=== PATIENT | female | born 1965 | race Caucasian/White ===

== ENCOUNTER 2017-03-31 08:50 | Emergency (ER) | payer MEDICAID, OTHER ==
[2017-03-31] MEDS ORDERED: Naproxen 550 mg Tab PO STA (09:27)
[2017-03-31] MEDS ORDERED: Dexamethasone 4 mg/1 ml IM STA (09:28)
[2017-03-31] MEDS ORDERED: Naproxen 550 mg Tab PO ONE (09:33)
[2017-03-31] MEDS ORDERED: Dexamethasone 4 mg/1 ml ONE ×2 (09:33→09:38)
--- NOTE | 2017-03-31 09:43 | C.PDOC ---
Time Seen by Provider: 03/31/17 09:19 Chief Complaint (Nursing): ENT Problem History Per: Patient Onset/Duration Of Symptoms: Days (2) Current Symptoms Are (Timing): Still Present Associated Symptoms: Fever (subjective), Sore Throat Severity: Moderate Additional History Per: Prior Records Past Medical History Reviewed: Historical Data, Nursing Documentation, Vital Signs Vital Signs: Last Vital Signs Temp 98.2 F 03/31/17 09:11 Pulse 73 03/31/17 09:11 Resp 20 03/31/17 09:11 BP 119/76 03/31/17 09:11 Pulse Ox 100 03/31/17 09:44 - Medical History PMH: HTN Other Surgeries: Tubal ligation? Family History: States: Unknown Family Hx - Social History Hx Alcohol Use: No Hx Substance Use: No - Immunization History Hx Tetanus Toxoid Vaccination: No Hx Influenza Vaccination: No Hx Pneumococcal Vaccination: No Review Of Systems Except As Marked, All Systems Reviewed And Found Negative. Constitutional: Positive for: Malaise ENT: Positive for: Throat Pain, Throat Swelling. Negative for: Nose Congestion Cardiovascular: Negative for: Chest Pain Respiratory: Negative for: Shortness of Breath Gastrointestinal: Negative for: Vomiting, Abdominal Pain Musculoskeletal: Negative for: Neck Pain Skin: Negative for: Rash Neurological: Positive for: Headache. Negative for: Weakness, Numbness, Seizures, Altered Mental Status Physical Exam - Physical Exam Appears: Non-toxic, No Acute Distress Skin: Normal Color, Warm, Dry, No Rash Head: Atraumatic, Normacephalic Eye(s): bilateral: Normal Inspection, PERRL, EOMI Throat: Erythema, No Drooling, No Mass, Other (symmetrically enlarged tonsils) Neck: Normal ROM, Supple Cardiovascular: Rhythm Regular Respiratory: Normal Breath Sounds, No Accessory Muscle Use Gastrointestinal/Abdominal: Soft, No Tenderness Back: No CVA Tenderness Extremity: Normal ROM Neurological/Psych: Oriented x3, Normal Speech, Normal Motor, Normal Sensation ED Course And Treatment O2 Sat by Pulse Oximetry: 100 Pulse Ox Interpretation: Normal Reassessment Condition: Improved Disposition Counseled Patient/Family Regarding: Diagnosis, Need For Followup, Rx Given - Disposition Referrals: Shanell John MD [Medical Doctor] - Disposition: HOME/ ROUTINE Disposition Time: 10:16 Condition: IMPROVED Additional Instructions: Follow up with your doctor within 2 days. Return to the ER if you develop high fever, vomiting, trouble breathing or swallowing, worsening of symptoms or if you have any other concerns. Prescriptions: Azithromycin [Zithromax] 1 dose PO DAILY #1 pkt Naproxen [Naprosyn] 1 tab PO BID PRN #20 tab PRN Reason: Pain Instructions: Pharyngitis (ED) Print Language: GUAMANIAN - Clinical Impression Clinical Impression: Acute pharyngitis
[2017-03-31 10:23] VITALS: BP 101/67; PULSE 68; RESP 18; TEMP 97.9; O2SAT 99
== END 2017-03-31 10:25 | disposition home or self-care (01) ==
LOC: C.ER 08:50
DX: J02.9 Acute pharyngitis, unspecified (principal)
CPT/HCPCS: 96372; 99283; J1100

== ENCOUNTER 2017-10-06 18:07 | Emergency (ER) | payer MEDICAID ==
[2017-10-06 18:16] VITALS: O2SAT 100
[2017-10-06 19:09] LABS: BASO % 0.9 % (0.0-2.0); EOS # 0.1 K/uL (0.0-0.7); EOS % 1.6 % (0.0-4.0); HEMATOCRIT 33.5 % (34.0-47.0); LYMPH # 1.4 K/uL (1.0-4.3); LYMPH % 32.6 % (20.0-40.0); MEAN CELL VOLUME 85.4 fL (81.0-99.0); MEAN CORPUSCULAR HEMOGLOBIN 28.3 pg (27.0-31.0); MEAN CORPUSCULAR HGB CONC 33.1 g/dL (33.0-37.0); MONO # 0.5 K/uL (0.0-0.8); RED CELL DISTRIBUTION WIDTH 14.1 % (11.5-14.5); WHITE BLOOD COUNT 4.3 K/uL (4.8-10.8)
--- NOTE | 2017-10-06 19:16 | C.PDOC ---
History Of Present Illness 52-year-old female presents to the ED complaining of left facial numbness and slight droop since 8am this morning. No headache. Reports having chest pain yesterday but not today. PMD: Shanell John Time Seen by Provider: 10/06/17 19:00 Chief Complaint (Nursing): Weakness/Neurological Deficit History Per: Patient History/Exam Limitations: no limitations Onset/Duration Of Symptoms: Hrs (x11) Current Symptoms Are (Timing): Still Present Past Medical History Reviewed: Historical Data, Nursing Documentation, Vital Signs Vital Signs: Last Vital Signs Temp 98.3 F 10/06/17 19:57 Pulse 76 10/06/17 19:57 Resp 11 L 10/06/17 19:57 BP 123/67 10/06/17 19:57 Pulse Ox 100 10/06/17 20:06 - Medical History PMH: HTN Other Surgeries: Hysterectomy Family History: States: Unknown Family Hx - Social History Hx Alcohol Use: No Hx Substance Use: No - Immunization History Hx Tetanus Toxoid Vaccination: No Hx Influenza Vaccination: No Hx Pneumococcal Vaccination: No Review Of Systems Except As Marked, All Systems Reviewed And Found Negative. Cardiovascular: Negative for: Chest Pain Neurological: Positive for: Numbness (to left face, w/ slight droop). Negative for: Headache Physical Exam - Physical Exam Appears: Non-toxic, No Acute Distress Skin: Normal Color, Warm, Dry Head: Atraumatic, Normacephalic Eye(s): bilateral: Normal Inspection, PERRL, EOMI, Other (no retinal bleed) Neck: Normal, Supple Chest: Symmetrical Cardiovascular: Rhythm Regular, No Murmur Respiratory: Normal Breath Sounds, No Accessory Muscle Use Gastrointestinal/Abdominal: Normal Exam, Soft, No Tenderness Extremity: Bilateral: Atraumatic, Normal Color And Temperature, Normal ROM Neurological/Psych: Oriented x3, Normal Speech, No Other (focal deficits) Gait: Steady Other Neurological Findings: Facial Palsy (minimal left facial droop) ED Course And Treatment - Laboratory Results Result Diagrams: 10/06/17 19:03 10/06/17 19:03 O2 Sat by Pulse Oximetry: 100 (RA) Pulse Ox Interpretation: Normal Medical Decision Making Medical Decision Making: Plan: * CMP * Troponin I * CBC * PTT * Prothrombin time * EKG * CT Head w/o contrast Disposition Counseled Patient/Family Regarding: Diagnosis - Disposition Referrals: [facility] [Outside] Disposition Time: 20:23 Condition: GOOD Prescriptions: Prednisone 10 mg PO QID 5 Days #20 tab.ds.pk Instructions: Garcia Palsy (ED) Forms: [facility] (Paraguayan), Gen Discharge Inst Azeri Print Language: ROMANIAN - POA Present On Arrival: None - Clinical Impression Clinical Impression: Garcia's palsy - Scribe Statement The provider has reviewed the documentation as recorded by the Scribgeoffrey Alvarado All medical record entries made by the Rubénibgeoffrey were at my direction and personally dictated by me. I have reviewed the chart and agree that the record accurately reflects my personal performance of the history, physical exam, medical decision making, and the department course for this patient. I have also personally directed, reviewed, and agree with the discharge instructions and disposition.
[2017-10-06 19:18] LABS: ALKALINE PHOSPHATASE 74 U/L (38-126); ALT/SGPT 30 U/L (9-52); AST/SGOT 16 U/L (14-36); BILIRUBIN,TOTAL 0.3 mg/dL (0.2-1.3); BLOOD UREA NITROGEN 11 mg/dL (7-17); CALCIUM 8.4 mg/dl (8.6-10.4); CARBON DIOXIDE 27 mmol/L (22-30); CHLORIDE 104 mmol/L (98-107); GFR AFRICAN-AMERICAN > 60; GLUCOSE,RANDOM 81 mg/dL (65-105); POTASSIUM 3.4 mmol/L (3.6-5.2); SODIUM 138 mmol/L (132-148); TOTAL PROTEIN 7.6 g/dL (6.3-8.3)
[2017-10-06 19:58] VITALS: BP 123/67; PULSE 76
[2017-10-06 20:04] VITALS: TEMP 98.3
--- NOTE | 2017-10-06 20:11 | CT ---
EXAM: CT Head Without Intravenous Contrast EXAM DATE/TIME: 10/06/2017 7:05 PM CLINICAL HISTORY: 52 years old, female; Signs and symptoms; Weakness, facial; Patient HX: Left facial droop TECHNIQUE: Axial computed tomography images of the head/brain without intravenous contrast. All CT scans at this facility use one or more dose reduction techniques, viz.: automated exposure control; ma/kV adjustment per patient size (including targeted exams where dose is matched to indication; i.e. head); or iterative reconstruction technique. Coronal and sagittal reformatted images were created and reviewed. COMPARISON: There are no prior studies for comparison. FINDINGS: Brain: Ventricles are normal in size and configuration. There is no midline shift. There is mild prominence of sulci and gyri. There are no intra-axial or extra-axial mass lesions or areas of hemorrhage. There are no abnormal fluid collections. Dumont-white differentiation is maintained. Ventricles: See above. Bones: Cranial vault is intact. There is an incompletely imaged bony ossicle the left of the dens. Soft tissues: unremarkable Sinuses: There is no acute sinusitis. Ears and mastoids: There is no acute middle ear or mastoid changes. Orbits: Orbital contents are unremarkable. IMPRESSION: No acute intracranial abnormality
[2017-10-07 03:27] VITALS: RESP 13
== END 2017-10-06 21:06 | disposition home or self-care (01) ==
LOC: C.ER 18:07
DX: G51.0 Bell's palsy (principal)

== ENCOUNTER 2018-07-31 15:14 | Emergency (ER) | payer MEDICAID ==
[2018-07-31 16:05] VITALS: BP 137/76; PULSE 69; RESP 14; TEMP 98; O2SAT 97
--- NOTE | 2018-07-31 17:12 | C.PDOC ---
History Of Present Illness 52 y/o female presents to the ED complaining of left foot pain for 1 week. States she was walking quickly and mis-stepped but otherwise denies blunt trauma or twisting injury. She reports taking Tylenol and Advil with minimal relief. Otherwise patient denies any numbness, tingling, or extremity weakness. Time Seen by Provider: 07/31/18 15:53 Chief Complaint (Nursing): Lower Extremity Problem/Injury History Per: Patient History/Exam Limitations: no limitations Onset/Duration Of Symptoms: Days Current Symptoms Are (Timing): Still Present Past Medical History Reviewed: Historical Data, Nursing Documentation, Vital Signs Vital Signs: Last Vital Signs Temp 98 F 07/31/18 16:01 Pulse 69 07/31/18 16:01 Resp 14 07/31/18 16:01 BP 137/76 07/31/18 16:01 Pulse Ox 97 07/31/18 19:36 - Medical History PMH: HTN Denies: Chronic Kidney Disease Family History: States: Unknown Family Hx - Social History Hx Alcohol Use: No Hx Substance Use: No - Immunization History Hx Tetanus Toxoid Vaccination: No Hx Influenza Vaccination: No Hx Pneumococcal Vaccination: No Review Of Systems Musculoskeletal: Positive for: Foot Pain Skin: Negative for: Rash, Lesions Neurological: Negative for: Weakness, Numbness, Incoordination Physical Exam - Physical Exam Appears: Well, Non-toxic, No Acute Distress Skin: Warm, Dry, No Rash Head: Atraumatic, Normacephalic Eye(s): bilateral: Normal Inspection Chest: Symmetrical Respiratory: No Accessory Muscle Use, Other (speaking in full sentences, no respiratory distress) Extremity: Normal ROM (of lower extremities), Tenderness (to dorsum and along the 1st metatarsal of the left foot; (+) Tenderness to the medial plantar surface), Capillary Refill (less than 2 sec), No Deformity, No Swelling (or ecchymosis) Pulses: Left Dorsalis Pedis: Normal, Right Dorsalis Pedis: Normal Neurological/Psych: Oriented x3, Normal Speech Gait: Steady ED Course And Treatment O2 Sat by Pulse Oximetry: 97 (room air) Pulse Ox Interpretation: Normal - Other Rad X-Ray Left Foot X-Ray: Viewed By Me, Read By Radiologist Interpretation: FINDINGS: BONES: No acute displaced fracture. JOINTS: No dislocation. SOFT TISSUES: Soft tissue swelling. No evidence of radiopaque foreign body. OTHER FINDINGS: None. IMPRESSION: Soft tissue swelling. No acute displaced fracture or dislocation identified. If symptoms persist, or if there is continued clinical concern, x-ray follow-up in 7-10 days should be considered. Medical Decision Making Medical Decision Making: Impression: Left foot pain Plan: --X-ray of left foot --Toradol 30 mg IM --Reassess and dispo Progress/Updates: X-ray negative for acute fracture or dislocation. Discussed results with patient , and copy of report was provided. On re-examination, patient is resting comfortably in no acute distress. Patient reports improvement of symptoms. Patient feels comfortable going home and will be discharged. Patient given follow up instructions. Instructed to return to ER if symptoms worsen or new symptoms arise. Disposition Counseled Patient/Family Regarding: Need For Followup, Rx Given - Disposition Referrals: Merna Montiel DPM [Staff Provider] - [facility] [Outside] Disposition: HOME/ ROUTINE Disposition Time: 17:12 Condition: STABLE Additional Instructions: Your x-ray was normal, no fracture. Please apply ice to area 15 minutes three times a day. Take Motrin as needed for pain every 6 hours, with food to not upset stomach. Follow up with orthopedic or podiatry if pain persists over one week. Vivien jennifer X fueron normales, sin fractura. Por favor aplique hielo en el arnaldo 15 minutos corey veces al da. [place] Motrin cuando sea necesario para el dolor cada 6 horas, con alimentos para no alterar el estmago. Latha un seguimiento con ortopedia o podologa si el dolor persiste emerita luna semana. 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 - Scribe Statement The provider has reviewed the documentation as recorded by the Scribe (Mary Alvarado) All medical record entries made by the Scribe were at my direction and personally dictated by me. I have reviewed the chart and agree that the record accurately reflects my personal performance of the history, physical exam, medical decision making, and the department course for this patient. I have also personally directed, reviewed, and agree with the discharge instructions and disposition.
--- NOTE | 2018-07-31 18:37 | RAD ---
PROCEDURE: Left Foot Radiographs. HISTORY: pain near 1st MTP s.p walking for one week COMPARISON: None available. FINDINGS: BONES: No acute displaced fracture. JOINTS: No dislocation. SOFT TISSUES: Soft tissue swelling. No evidence of radiopaque foreign body. OTHER FINDINGS: None. IMPRESSION: Soft tissue swelling. No acute displaced fracture or dislocation identified. If symptoms persist, or if there is continued clinical concern, x-ray follow-up in 7-10 days should be considered.
== END 2018-07-31 17:32 | disposition home or self-care (01) ==
LOC: C.ER 15:14
DX: M72.2 Plantar fascial fibromatosis (principal); M79.672 Pain in left foot; I10 Essential (primary) hypertension
CPT/HCPCS: 73630; 96372; 99284; J1885

== ENCOUNTER 2018-10-31 10:02 | Emergency (ER) | payer MEDICAID ==
[2018-10-31 10:23] VITALS: RESP 18; BMI 30.9
--- NOTE | 2018-10-31 11:18 | RAD ---
Date of service: 10/31/2018 PROCEDURE: Radiographs of the left shoulder joint HISTORY: r/o fx COMPARISON: No prior. FINDINGS: BONES: Bone alignment and mineralization are normal. There is no acute displaced fracture or bone destruction. JOINTS: The glenohumeral and acromioclavicular joints are preserved. No significant degenerative osteoarthrosis. SOFT TISSUES: Normal. OTHER FINDINGS: None. IMPRESSION: No acute displaced fracture or dislocation.
[2018-10-31 11:28] VITALS: BP 117/73; PULSE 62; TEMP 98.4; O2SAT 100
--- NOTE | 2018-10-31 13:02 | C.PDOC ---
History Of Present Illness 53 year old female presents to the ED for evaluation of left shoulder pain which began 4 days ago. Patient took Advil and Naproxen with some relief. She denies fever, chills, cough, chest pain, shortness of breath, or trauma. Time Seen by Provider: 10/31/18 10:20 Chief Complaint (Nursing): Upper Extremity Problem/Injury History Per: Patient History/Exam Limitations: no limitations Onset/Duration Of Symptoms: Days (4) Current Symptoms Are (Timing): Still Present Quality: "Pain" Additional History Per: Patient Past Medical History Reviewed: Historical Data, Nursing Documentation, Vital Signs Vital Signs: Last Vital Signs Temp 98.4 F 10/31/18 11:27 Pulse 62 10/31/18 11:27 Resp 18 10/31/18 11:27 BP 117/73 10/31/18 11:27 Pulse Ox 100 10/31/18 11:27 - Medical History PMH: HTN Denies: Chronic Kidney Disease Surgical History: No Surg Hx Family History: States: Unknown Family Hx - Social History Hx Alcohol Use: No Hx Substance Use: No - Immunization History Hx Tetanus Toxoid Vaccination: No Hx Influenza Vaccination: No Hx Pneumococcal Vaccination: No Review Of Systems Constitutional: Negative for: Fever, Chills Cardiovascular: Negative for: Chest Pain Respiratory: Negative for: Shortness of Breath Musculoskeletal: Positive for: Shoulder Pain (left ) Physical Exam - Physical Exam Appears: Non-toxic, No Acute Distress Skin: Normal Color, Warm, Dry Head: Atraumatic, Normacephalic Eye(s): bilateral: Normal Inspection Oral Mucosa: Moist Neck: Supple Chest: Symmetrical, No Deformity Cardiovascular: Rhythm Regular Respiratory: Normal Breath Sounds Back: No Decreased ROM (full ROM of left shoulder ), Other (hypertonicity at left trapezius muscle ) Extremity: Normal ROM Neurological/Psych: Oriented x3, Normal Speech, Normal Cognition ED Course And Treatment O2 Sat by Pulse Oximetry: 100 (on RA) Pulse Ox Interpretation: Normal Medical Decision Making Medical Decision Making: Impression: 53 year old female with left shoulder pain Plan: * left shoulder XR * Motrin PO * reassess and disposition Progress: Left shoulder XR ordered and reviewed. Motrin PO given. On reassessment, patient is resting comfortably, showing no signs of distress and reports an improvement in her pain. Patient is stable for discharge and is advised to follow up with her PMD within 1-2 days for further evaluation. Disposition - Disposition Referrals: [facility] Yaquelin Gaytan, [Non-Staff] - Disposition: HOME/ ROUTINE Disposition Time: 11:20 Condition: GOOD Additional Instructions: PAMELA LUCAS, thank you for letting us take care of you today. Your provider was Darell Espinoza DO and you were treated for LT SHOULDER PAIN. The emergency medical care you received today was directed at your acute symptoms. If you were prescribed any medication, please fill it and take as directed. It may take several days for your symptoms to resolve. Return to the Emergency Department if your symptoms worsen, do not improve, or if you have any other problems. Please contact your doctor or call one of the physicians/clinics you have been referred to that are listed on the Patient Visit Information form that is included in your discharge packet. Bring any paperwork you were given at discharge with you along with any medications you are taking to your follow up visit. Our treatment cannot replace ongoing medical care by a primary care provider outside of the emergency department. Thank you for allowing the [facility] team to be part of your care today. Follow up with your primary care doctor in 3-5 days for re-evaluation and further management. Prescriptions: Cyclobenzaprine [Cyclobenzaprine HCl] 10 mg PO Q8 PRN #20 tab PRN Reason: Muscle Spasm Ibuprofen [Motrin] 600 mg PO Q6 PRN #20 tab PRN Reason: Pain, Moderate (4-7) Instructions: Muscle and Bone Pain (DC) Forms: [facility] (Malagasy) - Clinical Impression Clinical Impression: Shoulder sprain - Scribe Statement The provider has reviewed the documentation as recorded by the Scribe (Nora Quezada) Provider Attestation: All medical record entries made by the Scribe were at my direction and personally dictated by me. I have reviewed the chart and agree that the record accurately reflects my personal performance of the history, physical exam, medical decision making, and the department course for this patient. I have also personally directed, reviewed, and agree with the discharge instructions and disposition.
== END 2018-10-31 11:29 | disposition home or self-care (01) ==
LOC: C.ER 10:02
DX: S43.402A Unspecified sprain of left shoulder joint, initial encounter (principal); X58.XXXA Exposure to other specified factors, initial encounter
CPT/HCPCS: 73030; 96372; 99284; J1885